=== PATIENT | female | born 1960 | race Hispanic/Latino ===

== ENCOUNTER 2018-10-07 02:26 | Emergency (ER) | payer BC ==
[2018-10-07] MEDS ORDERED: MEPERIDINE HCL 50 MG/ML AMP ONE (03:18)
[2018-10-07] MEDS ORDERED: NA CHLORIDE 0.9% 1,000 ML ONE (03:18)
[2018-10-07] MEDS ORDERED: ONDANSETRON 4 MG/2 ML VIAL ONE (03:20)
[2018-10-07 03:27] LABS: Absolute Lymphocytes (CBC) 1.9 K/uL (0.7-4.9); Absolute Monocytes 0.5 K/uL (0.1-1.3); Absolute Neutrophil 5.6 K/uL (1.8-8.0); Basophils % 0.9 % (0-1.3); Eosinophils % 2.8 % (0-4.4); Hematocrit 40.5 % (36.0-45.0); Lymphocytes % 23.1 % (15.3-44.8); MPV 9.2 fL (7.6-11.3); Monocytes % 5.7 % (3.3-12.3)
[2018-10-07 03:43] LABS: ALT/SGPT 44 U/L (12-78); AST/SGOT 29 U/L (15-37); Albumin 3.8 g/dL (3.4-5.0); Alkaline Phosphatase 169 U/L (45-117); BUN Blood Urea Nitrogen 16 mg/dL (7-18); Bicarbonate 19 mmol/L (21-32); Bilirubin Direct < 0.1 mg/dL (0-0.2); Bilirubin Total 0.4 mg/dL (0.2-1.0); Glucose Level 120 mg/dL (74-106); Lipase 312 U/L (73-393); Potassium 3.6 mmol/L (3.5-5.1); Protein, Total 8.1 g/dL (6.4-8.2); Sodium Level 141 mmol/L (136-145)
--- NOTE | 2018-10-07 04:20 | ER ---
Nurse's Notes [facility] Name: Bessie Malik Age: 58 yrs Sex: Female : 1960 Arrival Date: 10/07/2018 Time: 02:26 Bed 16 Private MD: Diagnosis: Left renal colic. Bilateral nephrolithiasis without hydronephrosis Presentation: 10/07 02:35 Presenting complaint: Patient states: Pt reports she started having left lower stomach ea pain that radiated to the back, pt reports urinary urgency. States "I keep on wanting to go but only pee a little". Transition of care: patient was not received from another setting of care. Onset of symptoms was October 07, 2018. Risk Assessment: Do you want to hurt yourself or someone else? Patient reports no desire to harm self or others. Initial Sepsis Screen: Does the patient meet any 2 criteria? No. Patient's initial sepsis screen is negative. Does the patient have a suspected source of infection? Yes: Dysuria/Frequency/Urgency/UTI. Care prior to arrival: None. 02:35 Method Of Arrival: Ambulatory ea 02:35 Acuity: MARY 3 ea Triage Assessment: 02:42 General: Appears uncomfortable, Behavior is crying. Pain: Complains of pain in ea suprapubic area, posterior aspect of left lateral abdomen, anterior aspect of left lateral abdomen and left lower quadrant. Neuro: Level of Consciousness is awake, alert, obeys commands, Oriented to person, place, time, situation. GI: Reports nausea. Derm: Skin is pink, warm \\T\\ dry. Historical: - Allergies: 02:39 "sulfates"; ea - PMHx: 02:39 fatty liver; ea - PSHx: 02:39 Tonsillectomy; Hysterectomy; Appendectomy; Cholecystectomy; ea - Immunization history:: Adult Immunizations up to date. - Social history:: Smoking status: Patient/guardian denies using tobacco. - Ebola Screening: : No symptoms or risks identified at this time. Screenin:37 Abuse screen: Denies threats or abuse. Nutritional screening: No deficits noted. ea Tuberculosis screening: No symptoms or risk factors identified. Fall Risk None identified. Assessment: 02:43 General: Appears in no apparent distress. uncomfortable, Behavior is cooperative, cc3 anxious. Pain: Complains of pain in left lower quadrant and suprapubic area Pain currently is 10 out of 10 on a pain scale. Quality of pain is described as aching, sharp, Pain began suddenly. Neuro: Level of Consciousness is awake, alert, obeys commands, Oriented to person, place, time, situation, Appropriate for age. Cardiovascular: Denies chest pain, Patient's skin is warm and dry. Respiratory: Airway is patent Respiratory effort is even, unlabored, Respiratory pattern is regular, symmetrical. GI: Bowel sounds present X 4 quads. Abd is soft and non tender X 4 quads. : Reports urinary frequency, since today. EENT: No signs and/or symptoms were reported regarding the EENT system. Derm: No signs and/or symptoms reported regarding the dermatologic system. Musculoskeletal: Circulation, motion, and sensation intact. Range of motion: intact in all extremities. 03:43 Reassessment: Patient appears in no apparent distress at this time. Patient and/or cc3 family updated on plan of care and expected duration. Pain level reassessed. Patient is alert, oriented x 3, equal unlabored respirations, skin warm/dry/pink. Patient came back from CT scan department, awaiting result. Patient denies pain at this time. Patient states feeling better. Patient states symptoms have improved. 04:30 Reassessment: Patient appears in no apparent distress at this time. Patient and/or cc3 family updated on plan of care and expected duration. Pain level reassessed. Patient is alert, oriented x 3, equal unlabored respirations, skin warm/dry/pink. Dr. Fountain discharged the patient home with prescription given. IV cannula removed and patient left ER vitally stable and ambulatory with her and with the CT scan CD result. Patient denies pain at this time. Patient states feeling better. Patient states symptoms have improved. Vital Signs: 02:41 BP 148 / 102; Pulse 108; Resp 20; Temp 97.4(TE); Pulse Ox 97% on R/A; Weight 60.78 kg; ea Height 4 ft. 11 in. (149.86 cm); 03:15 BP 132 / 90; Pulse 97; Resp 18 S; Pulse Ox 97% on R/A; cc3 04:11 BP 124 / 71; Pulse 73; Resp 16 S; Pulse Ox 96% on R/A; cc3 02:41 Body Mass Index 27.06 (60.78 kg, 149.86 cm) ea ED Course: 02:26 Patient arrived in ED. am2 02:34 Josh Fountain MD is Attending Physician. pkl 02:37 Triage completed. ea 02:39 Arm band placed on right wrist. Patient placed in an exam room, on a stretcher, on ea pulse oximetry. 02:43 Mehnaz Talley is Primary Nurse. cc3 02:43 Patient has correct armband on for positive identification. Bed in low position. Call cc3 light in reach. Side rails up X 1. Pulse ox on. NIBP on. 02:55 Inserted saline lock: 20 gauge in left antecubital area, using aseptic technique. Blood cc3 collected. 04:30 No provider procedures requiring assistance completed. IV discontinued, intact, cc3 bleeding controlled, No redness/swelling at site. Pressure dressing applied. Administered Medications: 03:05 Drug: NS 0.9% 1000 ml Route: IV; Rate: 1000 ml; Site: left antecubital; cc3 04:15 Follow up: Response: No adverse reaction; IV Status: Completed infusion; IV Intake: cc3 1000ml 03:05 Drug: Demerol 50 mg Route: IVP; Site: left antecubital; cc3 03:45 Follow up: Response: No adverse reaction; Pain is decreased cc3 03:10 Drug: Zofran 4 mg Route: IVP; Site: left antecubital; cc3 03:45 Follow up: Response: No adverse reaction; Nausea is decreased cc3 Intake: 04:15 IV: 1000ml; Total: 1000ml. cc3 Outcome: 04:19 Discharge ordered by . pkl 04:30 Discharged to home ambulatory, with family. cc3 04:30 Condition: stable 04:30 Discharge instructions given to patient, family, Instructed on discharge instructions, follow up and referral plans. medication usage, Demonstrated understanding of instructions, follow-up care, medications, Prescriptions given X 1. 04:34 Patient left the ED. cc3 Signatures: Josh Fountain MD MD pkl Moreno, Amanda am2 Rosie Rodarte, RN RN Mehnaz Gibbons cc3
--- NOTE | 2018-10-07 04:20 | EDPHYS ---
Physician Documentation [facility] Name: Bessie Malik Age: 58 yrs Sex: Female : 1960 Arrival Date: 10/07/2018 Time: 02:26 Bed 16 Private MD: ED Physician Josh Fountain HPI: 10/07 02:57 This 58 yrs old Female presents to ER via Ambulatory with complaints of pkl Abdominal Pain. 02:57 The patient complains of pain in the left flank. The pain radiates to the left lower pkl quadrant. Onset: The symptoms/episode began/occurred just prior to arrival. The patient has not experienced similar symptoms in the past. Historical: - Allergies: 02:39 "sulfates"; ea - PMHx: 02:39 fatty liver; ea - PSHx: 02:39 Tonsillectomy; Hysterectomy; Appendectomy; Cholecystectomy; ea - Immunization history:: Adult Immunizations up to date. - Social history:: Smoking status: Patient/guardian denies using tobacco. - Ebola Screening: : No symptoms or risks identified at this time. ROS: 02:57 Eyes: Negative for injury, pain, redness, and discharge, ENT: Negative for injury, pkl pain, and discharge, Neck: Negative for injury, pain, and swelling, Cardiovascular: Negative for chest pain, palpitations, and edema, Respiratory: Negative for shortness of breath, cough, wheezing, and pleuritic chest pain, Abdomen/GI: Negative for abdominal pain, nausea, vomiting, diarrhea, and constipation. 02:57 Back: Positive for flank pain, on the left. 02:57 : Positive for urinary frequency. 02:57 MS/extremity: Negative for acute changes. 02:57 Skin: Negative for rash. 02:57 Neuro: Negative for altered mental status. Exam: 02:57 Head/Face: Normocephalic, atraumatic. Eyes: Pupils equal round and reactive to light, pkl extra-ocular motions intact. Lids and lashes normal. Conjunctiva and sclera are non-icteric and not injected. Cornea within normal limits. Periorbital areas with no swelling, redness, or edema. ENT: Nares patent. No nasal discharge, no septal abnormalities noted. Tympanic membranes are normal and external auditory canals are clear. Oropharynx with no redness, swelling, or masses, exudates, or evidence of obstruction, uvula midline. Mucous membranes moist. Neck: Trachea midline, no thyromegaly or masses palpated, and no cervical lymphadenopathy. Supple, full range of motion without nuchal rigidity, or vertebral point tenderness. No Meningismus. Chest/axilla: Normal chest wall appearance and motion. Nontender with no deformity. No lesions are appreciated. Cardiovascular: Regular rate and rhythm with a normal S1 and S2. No gallops, murmurs, or rubs. Normal PMI, no JVD. No pulse deficits. Respiratory: Lungs have equal breath sounds bilaterally, clear to auscultation and percussion. No rales, rhonchi or wheezes noted. No increased work of breathing, no retractions or nasal flaring. Abdomen/GI: Soft, non-tender, with normal bowel sounds. No distension or tympany. No guarding or rebound. No evidence of tenderness throughout. 02:57 Back: pain, that is severe, of the left flank. 02:57 : Exam negative for acute changes. 02:57 Musculoskeletal/extremity: Exam is negative for acute changes. 02:57 Skin: Exam negative for rash. 02:57 Neuro: Orientation: is normal, Mentation: is normal, Cranial nerves: grossly normal, Motor: is normal. Vital Signs: 02:41 BP 148 / 102; Pulse 108; Resp 20; Temp 97.4(TE); Pulse Ox 97% on R/A; Weight 60.78 kg; ea Height 4 ft. 11 in. (149.86 cm); 03:15 BP 132 / 90; Pulse 97; Resp 18 S; Pulse Ox 97% on R/A; cc3 04:11 BP 124 / 71; Pulse 73; Resp 16 S; Pulse Ox 96% on R/A; cc3 02:41 Body Mass Index 27.06 (60.78 kg, 149.86 cm) ea MDM: 02:34 Patient medically screened. pkl 04:16 Data reviewed: vital signs, nurses notes, lab test result(s), radiologic studies, CT pkl scan. 10/07 02:52 Order name: Urine Dipstick--Ancillary (enter results) mt 10/07 02:56 Order name: Basic Metabolic Panel pkl 10/07 02:56 Order name: CBC with Diff pkl 06/04 02:56 Order name: Creatinine for Radiology pkl 10/07 02:56 Order name: Hepatic Function pkl 10/07 02:56 Order name: Lipase pkl 10/07 03:36 Order name: CBC with Automated Diff; Complete Time: 03:46 EDMS 10/07 03:42 Order name: Creatinine (Radiology Only); Complete Time: 03:46 EDMS 10/07 03:45 Order name: Basic Metabolic Panel; Complete Time: 03:46 EDMS 10/07 03:45 Order name: Liver (Hepatic) Function; Complete Time: 03:46 EDMS 10/07 03:45 Order name: Lipase; Complete Time: 03:46 EDMS 10/07 02:56 Order name: IV Saline Lock; Complete Time: 02:59 pkl 10/07 02:56 Order name: Labs collected and sent; Complete Time: 03:20 pkl Administered Medications: 03:05 Drug: NS 0.9% 1000 ml Route: IV; Rate: 1000 ml; Site: left antecubital; cc3 04:15 Follow up: Response: No adverse reaction; IV Status: Completed infusion; IV Intake: cc3 1000ml 03:05 Drug: Demerol 50 mg Route: IVP; Site: left antecubital; cc3 03:45 Follow up: Response: No adverse reaction; Pain is decreased cc3 03:10 Drug: Zofran 4 mg Route: IVP; Site: left antecubital; cc3 03:45 Follow up: Response: No adverse reaction; Nausea is decreased cc3 Disposition: 10/07/18 04:19 Discharged to Home. Impression: Left renal colic. Bilateral nephrolithiasis without hydronephrosis. - Condition is Stable. - Prescriptions for Ultram 50 mg Oral Tablet - take 1 tablet by ORAL route every 8 hours As needed; 30 tablet. - Medication Reconciliation Form, Thank You Letter, Antibiotic Education, Prescription Opioid Use form. - Follow up: Private Physician; When: 2 - 3 days; Reason: Re-evaluation by your physician. - Problem is new. - Symptoms have improved. Signatures: Dispatcher [employer] EDJosh Mann MD MD pkl Antunez, Elena, RN RN ea Cordel, Charlene cc3 Corrections: (The following items were deleted from the chart) 04:34 04:19 10/07/2018 04:19 Discharged to Home. Impression: Left renal colic. Bilateral cc3 nephrolithiasis without hydronephrosis. Condition is Stable. Forms are Medication Reconciliation Form, Thank You Letter, Antibiotic Education, Prescription Opioid Use. Follow up: Private Physician; When: 2 - 3 days; Reason: Re-evaluation by your physician. Problem is new. Symptoms have improved. pkl
[2018-10-07 05:35] LABS: Urine Blood 2+ (NEG); Urine Glucose NEGATIVE (NEG); Urine Protein NEGATIVE (NEG); Urine Specific Gravity 1.025 (1.005-1.030)
--- NOTE | 2018-10-08 12:29 | RAD REPORT ---
EXAM DESCRIPTION: CT - Stone Protocol - 10/07/2018 4:08 am CLINICAL HISTORY: Abdominal pain COMPARISON: None. TECHNIQUE: CT ABDOMEN PELVIS WITHOUT IV CONTRAST on 10/07/2018 3:08 AM CDT This exam was performed according to our departmental dose-optimization program, which includes autom ated exposure control, adjustment of the mA and/or kV according to patient size and/or use of iterati ve reconstruction technique. FINDINGS: Lower lungs are clear. Abdomen: The liver is normal in appearance. There is no biliary dilatation. Cholecystectomy was perfo rmed. The pancreas and spleen are normal in appearance. Adrenal glands are normal. There are multiple , at least three 1 to 2 mm calculi within each kidney. Abdominal aorta is normal in course and caliber without aneurysm. There is no free air. There is no r etroperitoneal adenopathy. Pelvis: There is mild to moderate distal colonic diverticulosis. Urinary bladder is unremarkable. The re is no free fluid. Appendix is well seen. Uterus is absent. Skeleton: There are no acute osseous findings. No suspicious bony lesions. IMPRESSION: Bilateral nephrolithiasis without hydronephrosis. No definite acute process. Electronically signed by: Geovani Dobbs MD 10/07/2018 4:01 AM CDT Due to temporary technical issues with the PACS/Fluency reporting system, reports are being signed by the in house radiologist as a courtesy to ensure prompt reporting. The interpreting radiologist is f ully responsible for the content of the report.
== END 2018-10-07 04:34 | disposition home or self-care (01) ==
LOC: ER 02:26
DX: N23 Unspecified renal colic (principal); N20.0 Calculus of kidney; K76.0 Fatty (change of) liver, not elsewhere classified; Z88.2 Allergy status to sulfonamides
CPT/HCPCS: 36415; 74176; 76377; 80048; 80076; 81003; 83690; 85025; 96361; 96374; 96375; 99284; J2175; J2405; J7030

== ENCOUNTER 2024-12-23 13:44 | Day surgery (SDC) | payer OTHER, BC ==
[2024-12-23 15:27] LABS: Absolute Lymphocytes (CBC) 1.6 K/uL (0.7-4.9); Hematocrit 38.9 % (36.0-45.0); Hemoglobin 13.4 g/dL (12.0-15.0); MCH 30.9 pg (27.0-35.0); MCHC 34.6 g/dL (32.0-36.0); MCV 89.3 fL (80-100); MPV 8.4 fL (7.6-11.3); Nucleated RBC Absolute Count 0.0 (0-0); Nucleated Red Blood Cells % 0.0 % (0-0); RBC Red Blood Cell Count 4.35 M/uL (3.86-4.86); White Blood Count 8.00 thou/uL (4.3-10.9)
[2024-12-23 15:44] LABS: Anion Gap 10.4 mEq/L (5.0-15.0); BUN Blood Urea Nitrogen 13.0 mg/dL (7-18); Glucose Level 115.0 mg/dL (74-106); Potassium 3.4 mEq/L (3.5-5.1)
[2024-12-25] MEDS: Ringers Lactate 1,000 ML IV ONE (09:06)
[2024-12-25] MEDS ORDERED: MIDAZOLAM HCL 2 MG/2 ML INJ ONE (09:26)
[2024-12-25] MEDS ORDERED: LIDOCAINE 1% MPF 5 ML VIAL ONE (09:26)
[2024-12-25 10:58] VITALS: TEMP 97
[2024-12-25 11:21] VITALS: BP 149/80; O2SAT 98
== END 2024-12-25 11:25 | disposition home or self-care (01) ==
LOC: OR 13:44
PROVIDERS: ATTEND Surgery
PROC: 0DB78ZX Excision of Stomach, Pylorus, Via Natural or Artificial Opening Endoscopic, Diagnostic (ICD-10-PCS; 2024-12-25)
PROC: 0DB68ZX Excision of Stomach, Via Natural or Artificial Opening Endoscopic, Diagnostic (ICD-10-PCS; 2024-12-25)
PROC: 0DBM8ZX Excision of Descending Colon, Via Natural or Artificial Opening Endoscopic, Diagnostic (ICD-10-PCS; principal; 2024-12-25 09:15)
PROC: 0DB98ZX Excision of Duodenum, Via Natural or Artificial Opening Endoscopic, Diagnostic (ICD-10-PCS; 2024-12-25 09:15)
DX: Z12.11 Encounter for screening for malignant neoplasm of colon (principal); K21.9 Gastro-esophageal reflux disease without esophagitis; K62.3 Rectal prolapse; D12.4 Benign neoplasm of descending colon; K57.30 Diverticulosis of large intestine without perforation or abscess without bleeding; R10.13 Epigastric pain; K26.7 Chronic duodenal ulcer without hemorrhage or perforation; K29.50 Unspecified chronic gastritis without bleeding; K20.0 Eosinophilic esophagitis; K63.5 Polyp of colon; R19.00 Intra-abdominal and pelvic swelling, mass and lump, unspecified site; Z87.19 Personal history of other diseases of the digestive system
CPT/HCPCS: 45380; 43239; 43270; 93005; 85025; 80048; 36415; 88312; 88305; J2704 ×2; J2003; J2250; J7120